=== PATIENT | female | born 1975 | race Two or more races ===

== ENCOUNTER 2024-06-23 11:17 | Emergency (ER) | payer OTHER, SELFPAY ==
[2024-06-23 11:21] VITALS: BP 150/98; PULSE 83; TEMP 37.3; O2SAT 95; BMI 47.2
[2024-06-23] MEDS: PREDNISONE 20 MG TABLET 60 MG PO (11:45)
--- NOTE | 2024-06-23 12:11 | ED_ITS ---
HPI - Asthma General Chief Complaint: Asthma Stated Complaint: NIKKIE FLARE UP Time Seen by Provider: 06/23/24 11:25 Source: patient Mode of arrival: walk-in History of Present Illness HPI Narrative: The patient is coming to us with 1 week history of having upper respiratory tract infection symptoms of runny nose and congestion in addition to some dryness in her throat and cough that is mild The patient have history of asthma she been using her inhaler regularly and she thinks that she have no improvement She was seen by urgent care and they told her to come to the ER to be evaluated because they thought her pulse ox was low The patient mentioned that she does not have any respiratory distress her main concern is her upper respiratory tract infection symptoms Related Data Previous Rx's ?Medication ?Instructions ?Recorded prednisone 50 mg tablet 50 mg PO DAILY 5 days #5 tabs 06/23/24 Allergies Allergy/AdvReac Type Severity Reaction Status Date / Time lanolin Allergy Severe Unknown Verified 06/23/24 11:25 Review of Systems ROS Status of ROS 10 or more systems reviewed and unremark able except as noted in history and below PFSH PFSH Social History Little interest or pleasure in doing things: not at all Feeling down, depressed, or hopeless: not at all Exam Narrative Exam Narrative: Nurses notes and vital signs reviewed and patient is not hypoxic. General: Well-appearing and in no apparent distress. Skin: Warm, dry, no pallor noted. No rash. Head: Normocephalic, atraumatic. Neck: Supple, non-tender. Eye: Pupils are equal, round and EOMI. No scleral icterus. Ears, Nose, Mouth, and Throat: The patient have no tonsillar erythema or enlargement and the patient also have nasal congestion Cardiovascular: Regular Rate and Rhythm without murmur, gallop or rub. Respiratory: No accessory muscle use or respiratory distress. Lungs are clear to auscultation, no wheezing, rales or rhonchi Chest Wall: no tenderness Back: No midline thoracic or lumbar vertebral tenderness. No CVA tenderness Musculoskeletal: normal ROM, no calf or popliteal tenderness, no lower extremity edema/swelling GI: Abdomen is soft, non-distended. Normal bowel sounds. No masses appreciated. No tenderness to palpation. No rebound, guarding, or rigidity noted. Neurological: A&O x4. No cranial nerve dysfunction observed. No truncal ataxia. Moves all extremities. Sensation intact. Psychiatric: Cooperative and interactive. Normal mood and affect. Constitutional Vital Signs, click to edit/add: Last Vital Signs Temp 99.1 F 06/23/24 11:21 Pulse 83 06/23/24 11:21 Resp 22 H 06/23/24 11:21 BP 150/98 H 06/23/24 11:21 Pulse Ox 95 06/23/24 11:21 O2 Del Method Room Air 06/23/24 11:21 Course Vital Signs Vital signs: Vital Signs Temperature 99.1 F 06/23/24 11:21 Pulse Rate 83 06/23/24 11:21 Respiratory Rate 22 H 06/23/24 11:21 Blood Pressure 150/98 H 06/23/24 11:21 Pulse Oximetry 95 06/23/24 11:21 Oxygen Delivery Method Room Air 06/23/24 11:21 Temperature 99.1 F 06/23/24 11:21 Pulse Rate 83 06/23/24 11:21 Respiratory Rate 22 H 06/23/24 11:21 Blood Pressure 150/98 H 06/23/24 11:21 Pulse Oximetry 95 06/23/24 11:21 Oxygen Delivery Method Room Air 06/23/24 11:21 MDM - Asthma MDM Narrative Medical decision making narrative: The patient presentation is mostly secondary viral infection causing upper respiratory tract infection symptoms and mild asthma exacerbation Right now the patient was started on prednisone for the next 5 days her lungs were clear and she was not started antibiotic because is not indicated at the moment The patient was discharged with supportive care including Sudafed and prednisone and she is to come back to the ER in case of any new complaints The patient is to follow up with primary care physician in next 2-3 days or to return to the emergency department should any of the signs or symptoms worsen or new symptoms develop. The patient agrees with the following Diagnosis and Treatment plan and the patient will be discharged home. Discharge Plan Discharge Chief Complaint: Asthma Clinical Impression: Asthma with acute exacerbation Patient Disposition: Home, Self-Care Time of Disposition Decision: 11:37 Condition: Good Prescriptions / Home Meds: New prednisone 50 mg tablet 50 mg PO DAILY 5 Days Qty: 5 0RF Print Language: German Instructions: Asthma (DC), Sinusitis (ED) Discharge Date/Time: 06/23/24 11:57
== END 2024-06-23 11:57 | disposition home or self-care (01) ==
LOC: ER 11:55
PROVIDERS: Emergency Provider Emergency Medicine; PCP Nurse Practitioner
DX: J45.901 Unspecified asthma with (acute) exacerbation (principal)
CPT/HCPCS: 99282; J7512